=== PATIENT | female | born 1940 | race Caucasian/White ===

== ENCOUNTER 2017-04-18 16:15 | Emergency (ER) | payer MEDICARE, BC, OTHER ==
[~2017-04-18] VITALS: Ht 172.7 cm; Wt 67.0 kg
[~2017-04-18 16:15] MED LIST: ASPI81TA82 PO; LORTA5 PO
[2017-04-18 16:19] VITALS: BP 122/58; PULSE 77; RESP 16; TEMP 97.2; O2SAT 97
[2017-04-18] MEDS ORDERED: ROSU20 PO ×2 (16:32)
[2017-04-18] MEDS ORDERED: BIOT10TA PO (16:32)
[2017-04-18] MEDS ORDERED: XARE20TA PO (16:32)
[2017-04-18 16:45] VITALS: BP 118/62; PULSE 80; RESP 16; O2SAT 98
[2017-04-18 16:50] VITALS: RESP 16; O2SAT 98
--- NOTE | 2017-04-18 16:53 | PD ---
HPI Chief Complaint: Syncope/Near-Syncope Time Seen by Provider: 16:37 Travel History International Travel<30 days: No Contact w/Intl Traveler<30days: No Traveled to known affect area: No History of Present Illness HPI 77-year-old female states she went for a walk after having 2 alcoholic drinks and passed out. She states she doesn't think she hit her head and she doesn't remember the incident. She states she was by herself but her neighbors came to help her and she was only out for a little bit. She states that she takes Xarelto for strokes. She denies other blood thinner medications. She denies any symptoms before or after the fall. History is limited given fall was unwitnessed. PFSH Past Medical History Hx Anticoagulant Therapy: Yes (xeralto) Cardiovascular Problems: Yes Cerebrovascular Accident: Yes (CVA) Diminished Hearing: No Tetanus Vaccination: Unknown ?: Not Past Surgical History Surgical History: No Previous Surgery Social History Alcohol Use: Yes (WINE SOCIAL) Tobacco Use: No Substance Use: No Allergies-Medications (Allergen,Severity, Reaction): Coded Allergies: No Known Allergies (Verified Adverse Reaction, Unknown, 04/18/17) Reported Meds & Prescriptions Reported Meds & Active Scripts Active Macrobid (Nitrofurantoin Monoh/Nitrofur Macro) 100 Mg Cap 100 Mg PO BID 5 Days Reported Biotin 10 Mg Tab 10 Mg PO DAILY Crestor (Rosuvastatin Calcium) 20 Mg Tab 20 Mg PO WEEKLY Xarelto (Rivaroxaban) 20 Mg Tab 20 Mg PO DAILY Review of Systems ROS Limitations: Other: (unwitnessed fall) Except as stated in HPI: all other systems reviewed are Neg Physical Exam Narrative GENERAL: Well-nourished, well-developed patient. SKIN: Warm and dry. HEAD: Normocephalic and atraumatic. EYES: No injection or drainage. Pupils equal ENT: No nasal drainage noted. NECK: Supple, trachea midline. Nontender in midline CARDIOVASCULAR: Regular rate and rhythm RESPIRATORY: Breath sounds equal bilaterally. No accessory muscle use. GASTROINTESTINAL: Abdomen soft, non-tender, nondistended. EXTREMITIES: No edema. NEUROLOGICAL: Awake and alert. Motor and sensory grossly within normal limits. Normal speech. Data Data Last Documented VS Vital Signs Date Time Temp Pulse Resp B/P (MAP) Pulse Ox O2 Delivery O2 Flow Rate FiO2 04/18/17 18:38 04/18/17 18:11 86 16 96 Room Air 04/18/17 16:19 97.2 Orders Orders Electrocardiogram (04/18/17 16:46) Complete Blood Count With Diff (04/18/17 16:46) Comprehensive Metabolic Panel (04/18/17 16:46) Magnesium (Mg) (04/18/17 16:46) Ckmb (Isoenzyme) Profile (04/18/17 16:46) Troponin I (04/18/17 16:46) Act Partial Throm Time (Ptt) (04/18/17 16:46) Prothrombin Time / Inr (Pt) (04/18/17 16:46) Urinalysis - C+S If Indicated (04/18/17 16:46) Chest, Single Ap (04/18/17 16:46) Ct Brain W/O Iv Contrast(Rout) (04/18/17 16:46) Ecg Monitoring (04/18/17 16:46) Iv Access Insert/Monitor (04/18/17 16:46) Oximetry (04/18/17 16:46) Sodium Chloride 0.9% Flush (Ns Flush) (04/18/17 17:00) Alcohol (Ethanol) (04/18/17 16:46) Urine Culture (04/18/17 18:10) Ed Discharge Order (04/18/17 18:33) Labs Laboratory Tests Test 04/18/17 16:30 04/18/17 18:10 White Blood Count 6.2 TH/MM3 Red Blood Count 4.59 MIL/MM3 Hemoglobin 13.1 GM/DL Hematocrit 40.2 % Mean Corpuscular Volume 87.6 FL Mean Corpuscular Hemoglobin 28.6 PG Mean Corpuscular Hemoglobin Concent 32.6 % Red Cell Distribution Width 12.9 % Platelet Count 286 TH/MM3 Mean Platelet Volume 9.4 FL Neutrophils (%) (Auto) 62.2 % Lymphocytes (%) (Auto) 30.7 % Monocytes (%) (Auto) 4.5 % Eosinophils (%) (Auto) 1.3 % Basophils (%) (Auto) 1.3 % Neutrophils # (Auto) 3.8 TH/MM3 Lymphocytes # (Auto) 1.9 TH/MM3 Monocytes # (Auto) 0.3 TH/MM3 Eosinophils # (Auto) 0.1 TH/MM3 Basophils # (Auto) 0.1 TH/MM3 CBC Comment DIFF FINAL Differential Comment Prothrombin Time 10.9 SEC Prothromb Time International Ratio 1.1 RATIO Activated Partial Thromboplast Time 31.0 SEC Blood Urea Nitrogen 14 MG/DL Creatinine 0.78 MG/DL Random Glucose 85 MG/DL Total Protein 6.7 GM/DL Albumin 3.3 GM/DL Calcium Level 8.4 MG/DL Magnesium Level 2.2 MG/DL Alkaline Phosphatase 96 U/L Aspartate Amino Transf (AST/SGOT) 38 U/L Alanine Aminotransferase (ALT/SGPT) 28 U/L Total Bilirubin 0.3 MG/DL Sodium Level 140 MEQ/L Potassium Level 3.7 MEQ/L Chloride Level 106 MEQ/L Carbon Dioxide Level 26.5 MEQ/L Anion Gap 8 MEQ/L Estimat Glomerular Filtration Rate 72 ML/MIN Total Creatine Kinase 87 U/L Troponin I LESS THAN 0.02 NG/ML Ethyl Alcohol Level 242 MG/DL Urine Collection Type VOIDED Urine Color YELLOW Urine Turbidity CLEAR Urine pH 6.0 Urine Specific Delta 1.010 Urine Protein NEG mg/dL Urine Glucose (UA) NEG mg/dL Urine Ketones NEG mg/dL Urine Occult Blood SMALL Urine Nitrite NEG Urine Bilirubin NEG Urine Leukocyte Esterase SMALL Urine WBC 3-5 /hpf Urine WBC Clumps RARE Urine Bacteria RARE /hpf Microscopic Urinalysis Comment CULTURE INDICATED Urine Collection Time 1810 MDM Medical Decision Making Medical Screen Exam Complete: Yes Emergency Medical Condition: Yes Medical Record Reviewed: Yes (past history confirmed) Interpretation(s) CBC & BMP Diagram 04/18/17 16:30 Total Protein 6.7, Albumin 3.3 L, Calcium Level 8.4 L, Magnesium Level 2.2, Alkaline Phosphatase 96, Aspartate Amino Transf (AST/SGOT) 38 H, Alanine Aminotransferase (ALT/SGPT) 28, Total Bilirubin 0.3 Last [address] 04/18/17 164 Signed Impressions: Service Date/Time: Tuesday, April 18, 2017 17:37 - CONCLUSION: 1. Senescent changes with prominent small vessel white matter ischemic demyelination. 2. No acute intracranial abnormality. Quintin Galloway MD Chest X-Ray 04/18/17 1646 Signed Impressions: Service Date/Time: Tuesday, April 18, 2017 17:03 - CONCLUSION: The lungs are clear. Dmitriy Soriano MD alcohol is 242 Differential Diagnosis Anemia, vasovagal, alcohol intoxication, intracranial bleed.... Narrative Course Will check blood work, chest x-ray, CT brain and reevaluate ed workup with alcohol level of 242, patient now with clear speech and steady gait and ride here, lengthy discussion at bedside about risk of alcohol use on xarelto and need to limit but if heavy drink abrupt stopping could lead to withdrawal, she and understand, patient also incidentally has signs of urinary tract infection on urinalysis, we'll treat with Macrobid, patient has no fever, tachycardia, leukocytosis or other concurrent symptoms other than syncope which was likely related to intoxication, Patient denies any new complaints. all questions answered. Patient knows that follow up is incumbent on them and to return to the emergency room immediately if new or worsening symptoms develop. Patient given strict return precautions, vitals reviewed and are normal, agrees to further workup as an outpatient. Diagnosis Primary Impression: Alcohol intoxication Qualified Codes: F10.929 - Alcohol use, unspecified with intoxication, unspecified Additional Impressions: Syncope Qualified Codes: R55 - Syncope and collapse UTI (urinary tract infection) Qualified Codes: N39.0 - Urinary tract infection, site not specified Patient Instructions: General Instructions Additional Instructions: limit alcohol use, follow with primary friday, return as needed Med/Other Pt SpecificInfo: Prescription(s) given Scripts Nitrofurantoin Monohydrate Macrocrystals (Macrobid) 100 Mg Cap 100 MG PO BID for Infection for 5 Days, #10 CAP 0 Refills Prov: Veronique Ford MD 04/18/17 Disposition: 01 DISCHARGE HOME Condition: Stable Veronique Ford MD Apr 18, 2017 16:53
[2017-04-18] MEDS ORDERED: SODIUM CHLORIDE 0.9% FLUSH 10 ML FLUSH IVF PRN (17:00)
[2017-04-18 17:07] LABS: AUTOMATED NEUTROPHIL # 3.8 TH/MM3 (1.8-7.7); BASOPHIL # 0.1 TH/MM3 (0-0.2); BASOPHIL % 1.3 % (0.0-2.0); EOSINOPHIL # 0.1 TH/MM3 (0-0.4); EOSINOPHIL % 1.3 % (0.0-4.0); HEMATOCRIT 40.2 % (35.0-46.0); HEMOGLOBIN 13.1 GM/DL (11.6-15.3); LYMPH % 30.7 % (9.0-44.0); LYMPHOCYTE # 1.9 TH/MM3 (1.0-4.8); MEAN CELL VOLUME 87.6 FL (80.0-100.0); MEAN CORPUSCULAR HEMOGLOBIN 28.6 PG (27.0-34.0); MEAN CORPUSCULAR HGB CONC 32.6 % (32.0-36.0); MEAN PLATELET VOLUME 9.4 FL (7.0-11.0); MONO % 4.5 % (0.0-8.0); MONOCYTE # 0.3 TH/MM3 (0-0.9); NEUT % 62.2 % (16.0-70.0); PLATELET COUNT 286 TH/MM3 (150-450); RED BLOOD COUNT 4.59 MIL/MM3 (4.00-5.30); RED CELL DISTRIBUTION WIDTH 12.9 % (11.6-17.2); WHITE BLOOD COUNT 6.2 TH/MM3 (4.0-11.0)
--- NOTE | 2017-04-18 17:18 | RADRPT ---
EXAM DATE/TIME: 04/18/2017 17:03 [facility] COMPARISON: No previous studies available for comparison. INDICATIONS : Palpitations. MEDICAL HISTORY : None. SURGICAL HISTORY : None. ENCOUNTER: Initial ACUITY: 1 day PAIN SCORE: 04/30 LOCATION: Bilateral chest FINDINGS: A single view of the chest demonstrates the lungs to be symmetrically aerated without evidence of mas s, infiltrate or effusion. The cardiomediastinal contours are unremarkable. Osseous structures are intact. Small monitoring device projects over the lower left chest. CONCLUSION: The lungs are clear. Dmitriy Soriano MD on April 18, 2017 at 17:16 Board Certified Radiologist. This report was verified electronically.
[2017-04-18 17:24] LABS: INTERNATIONAL NORMALIZED RATIO 1.1 RATIO; PROTHROMBIN TIME - PATIENT 10.9 SEC (9.8-11.6)
[2017-04-18 17:36] LABS: CHLORIDE 106 MEQ/L (98-107); SODIUM (NA) 140 MEQ/L (136-145)
[2017-04-18 17:40] LABS: CALCIUM 8.4 MG/DL (8.5-10.1)
[2017-04-18 17:41] LABS: ALBUMIN 3.3 GM/DL (3.4-5.0); BICARBONATE 26.5 MEQ/L (21.0-32.0); BLOOD UREA NITROGEN 14 MG/DL (7-18); GLUCOSE,RANDOM 85 MG/DL (74-106); MAGNESIUM 2.2 MG/DL (1.5-2.5)
[2017-04-18 17:44] LABS: ALT (GPT) 28 U/L (10-53); AST (GOT) 38 U/L (15-37); CREATININE 0.78 MG/DL (0.50-1.00); GLOMERULAR FILTRATION RATE 72 ML/MIN (>89)
[2017-04-18 17:45] LABS: TOTAL BILIRUBIN ADULT 0.3 MG/DL (0.2-1.0); TOTAL PROTEIN 6.7 GM/DL (6.4-8.2)
[2017-04-18 17:47] LABS: ALKALINE PHOSPHATASE 96 U/L (45-117)
[2017-04-18 17:49] LABS: TROPONIN I LESS THAN 0.02 NG/ML (0.02-0.05)
--- NOTE | 2017-04-18 18:06 | RADRPT ---
EXAM DATE/TIME: 04/18/2017 17:37 [facility] COMPARISON: No previous studies available for comparison. INDICATIONS : Syncope. RADIATION DOSE: 58.37 CTDIvol (mGy) MEDICAL HISTORY : Cardiovascular disease. SURGICAL HISTORY : None. ENCOUNTER: Initial ACUITY: 1 day PAIN SCALE: 4/10 LOCATION: cranial TECHNIQUE: Multiple contiguous axial images were obtained of the head. Using automated exposure control and adj ustment of the mA and/or kV according to patient size, radiation dose was kept as low as reasonably a chievable to obtain optimal diagnostic quality images. DICOM format image data is available electro nically for review and comparison. FINDINGS: CEREBRUM: Upon a diffuse renal atrophy. Prominent periventricular white matter hypodensities. Calcification in the anterior right ventricle, likely choroid calcification. The ventricles are normal for degree of a trophy. No evidence of midline shift, mass lesion, hemorrhage or acute infarction. No extra-axial f luid collections are seen. POSTERIOR FOSSA: The cerebellum and brainstem are intact. The 4th ventricle is midline. The cerebellopontine angle i s unremarkable. EXTRACRANIAL: The visualized portion of the orbits is intact. SKULL: The calvaria is intact. No evidence of skull fracture. CONCLUSION: 1. Senescent changes with prominent small vessel white matter ischemic demyelination. 2. No acute intracranial abnormality. Quintin Galloway MD on April 18, 2017 at 18:02 Board Certified Radiologist. This report was verified electronically.
[2017-04-18 18:11] VITALS: BP 121/59; PULSE 86; RESP 16; O2SAT 96
[2017-04-18 18:19] LABS: BILIRUBIN, URINE NEG (NEG); BLOOD, URINE SMALL (NEG); GLUCOSE,URINE NEG (NEG); KETONE, URINE NEG (NEG); NITRITE,URINE NEG (NEG); URINE LEUKOCYTE ESTERASE SMALL (NEG)
[2017-04-18 18:28] LABS: URINE COLOR YELLOW (YELLW/STRAW)
[2017-04-18 18:29] LABS: BACTERIA, URINE RARE /hpf; WHITE BLOOD CELL CLUMPS RARE
[2017-04-18] MEDS ORDERED: MACR100C2 PO (18:32)
--- NOTE | 2017-04-20 13:09 | EKG ---
Date Performed: 04/18/2017 Time Performed: 16:54:43 PTAGE: 77 years EKG: Sinus rhythm WITH FREQUENT SUPRAVENTRICULAR PREMATURE COMPLEXES MARKED LEFT AXIS DEVIATION MINIMAL VOLTAGE CRITER IA FOR LVH, CONSIDER NORMAL VARIANT NONSPECIFIC T-WAVE ABNORMALITY Compared to prior tracing no signi ficant change ABNORMAL ECG PREVIOUS TRACING : 01/03/2003 10.11 DOCTOR: Evgeny Sarabia Interpretating Date/Time 04/20/2017 13:07:52
== END 2017-04-18 18:47 | disposition home or self-care (01) ==
LOC: PHED 16:15
DX: F10.129 Alcohol abuse with intoxication, unspecified (principal); R55 Syncope and collapse; N39.0 Urinary tract infection, site not specified; R94.31 Abnormal electrocardiogram [ECG] [EKG]; Z86.73 Personal history of transient ischemic attack (TIA), and cerebral infarction without residual deficits; Z79.01 Long term (current) use of anticoagulants
CPT/HCPCS: 70450; 71010; 80053; 80307; 81001; 82550; 83735; 84484; 85025; 85610; 85730; 87086; 93005